=== PATIENT | female | born 1960 | race Caucasian/White ===

== ENCOUNTER 2020-05-15 20:10 | Outpatient (REF) | payer MEDICAID, SELFPAY ==
[2020-05-15 19:37] LABS: HCT 42.5 % (36.0-46.0); HGB 14.1 g/dL (12.0-15.5); Mean Corp. HGB Concentration 33.2 g/dL (32.0-36.0); Mean Corpuscular Hemoglobin 30.2 pg (27.0-33.0); Mean Platelet Volume 11.3 fL (8.0-11.0); Platelet Count 308 x1000/uL (130-400); RBC 4.67 m/cumm (4.00-5.20); White Blood Cell Count 4.85 k/cumm (4.4-10.8)
[2020-05-15 20:05] LABS: ALT 19 U/L (14-59); AST 19 U/L (15-37); Albumin 4.1 g/dL (3.4-5.0); Alkaline Phosphatase 62 U/L (46-116); Anion Gap 9.3 mmol/L (3-11); BUN 9 mg/dL (7-18); Bilirubin, Total 0.6 mg/dL (0.2-1.0); CO2 27.7 mmol/L (21.0-32.0); CREATININE 0.81 mg/dL (0.55-1.02); Calcium 9.5 mg/dL (8.5-10.1); Calculated LDL 131 mg/dL (<100); Chloride 99 mmol/L (98-107); Cholesterol 210 mg/dL (<200); Glucose 88 mg/dL (74-106); HDL Cholesterol 70 mg/dL (40-60); Sodium 136 mmol/L (136-145); Total Protein 7.2 g/dL (6.4-8.2); Triglyceride 48 mg/dL (<150)
== END 2020-05-15 20:30 ==
LOC: NCHCN 20:10
PROVIDERS: PCP Nurse Practitioner Family; Visit Provider Nurse Practitioner Family
DX: Z13.220 Encounter for screening for lipoid disorders (principal); Z13.228 Encounter for screening for other metabolic disorders; Z13.0 Encounter for screening for diseases of the blood and blood-forming organs and certain disorders involving the immune mechanism
CPT/HCPCS: 80053; 80061; 85027

== ENCOUNTER 2020-05-16 01:29 | Outpatient (CLI) | payer MEDICAID, SELFPAY ==
--- NOTE | 2020-05-16 | DI.MAMMO_ITS ---
EXAM: MAMMO SCREENING CLINICAL HISTORY: SCREENING, Z12.39 TECHNIQUE: Bilateral full field digital CC and MLO mammographic images were obtained with 3D tomosyn thesis and utilizing computer aided detection (CAD). COMPARISON: Available for comparison. FINDINGS: Masses/Architectural Distortion: There is an asymmetric density in the posterior superior left breast seen on the MLO view. Microcalcifications: No suspicious pleomorphic-type are seen. Skin Thickening/Nipple Retraction: None. IMPRESSION: 1. Asymmetric density in the posterior superior left breast seen on the MLO view. 2. This area should be further evaluated with spot compression views and ultrasound. BI-RADS Category 0 - Assessment Incomplete: Need additional imaging evaluation Breast Density - Category B - Scattered areas of fibroglandular density A negative radiographic report should not delay biopsy if a dominant or clinically suspicious mass is present. Up to ten percent of cancers are not identified on mammography. A negative report may reinforce clinical impression. Adenosis and dense breasts may obscure an underlying neoplasm. False positive reports average 6 to 10%. Patient will receive a letter notifying them of these results.
== END 2020-05-16 01:49 ==
PROVIDERS: PCP Nurse Practitioner Family; Visit Provider Nurse Practitioner Family
DX: Z12.31 Encounter for screening mammogram for malignant neoplasm of breast (principal); R92.8 Other abnormal and inconclusive findings on diagnostic imaging of breast
CPT/HCPCS: 77063; 77067

== ENCOUNTER 2020-05-25 00:23 | Outpatient (CLI) | payer MEDICAID, SELFPAY ==
--- NOTE | 2020-05-25 | DI.MAMMO_ITS ---
EXAM: MG MAMMO SCREEN CALL BACK UNI CLINICAL HISTORY: F/U MAMMO, ASYMMETRIC DENSITY LT TECHNIQUE: Spot compression views including C- View and tomographic imaging were performed. COMPARISON: Exams from 2004 through 2017 from [facility]. Recent exam da gia 16 May 2020. FINDINGS: The breasts are composed of scattered fibroglandular densities, Breast Density category B. An MLO spot compression view with tomography was performed of the posterior right breast. No persistent abnormality is seen on the additional views performed. The findings are consistent wit h overlying fibroglandular tissue. There has been no significant change from prior exams. IMPRESSION: BI-RADS Category 1, Negative Mammogram. Yearly screening mammography is recommended. Breast Density Category B, scattered fibroglandular densities.
== END 2020-05-25 00:43 ==
PROVIDERS: PCP Nurse Practitioner Family; Visit Provider Nurse Practitioner Family
DX: Z12.31 Encounter for screening mammogram for malignant neoplasm of breast (principal); R92.8 Other abnormal and inconclusive findings on diagnostic imaging of breast; N60.82 Other benign mammary dysplasias of left breast
CPT/HCPCS: 77063; 77067

== ENCOUNTER 2022-10-29 11:11 | Outpatient (REF) | payer MEDICAID, SELFPAY ==
--- NOTE | 2022-10-29 09:30 | PAPFT_PTH ---
PATIENT: Talita Wu LOC: NCN #:[id number] AGE/SX: 62/F ROOM: RE10/29/[address]: Zandra Lopez : 1960 BED: DIS: 10/29/2022 SPEC #: [id number] RECD: 10/29/22 18:24 STATUS: JULIÁN REDuarte #: [id number] HORTENSIA: 10/29/22 09:[address]: Zandra Lopez [facility] Cytology RECD BY: Deena Sykes Tissues: 1 - CX/ENDOCX FOR PAP SMEARS Procedures: PAP THIN PREP/UVM Screening HPV DNA PROBE Comments: [id number]
== END 2022-10-29 11:12 | disposition home or self-care (01) ==
LOC: NCHCN 11:11
PROVIDERS: PCP Nurse Practitioner Family; Visit Provider Nurse Practitioner Family
DX: Z12.4 Encounter for screening for malignant neoplasm of cervix (principal); Z11.51 Encounter for screening for human papillomavirus (HPV)
CPT/HCPCS: 88142; 87624

== ENCOUNTER → 2022-10-31 02:08 | Outpatient (CLI) | payer MEDICAID, SELFPAY ==
--- NOTE | 2022-10-31 10:15 | DI.MAMMO_ITS ---
Exam(s) MAMMO SCREENING EXAM: MAMMO SCREENING CLINICAL HISTORY: SCREENING, Z12.39 TECHNIQUE: Bilateral full field digital CC and MLO mammographic images were obtained with 3D tomosyn thesis and utilizing computer aided detection (CAD). COMPARISON: Available for comparison. FINDINGS: Masses/Architectural Distortion: There is a new small asymmetric density in the posterior right breas t seen on the MLO and CC views. Microcalcifications: No suspicious pleomorphic-type are seen. Skin Thickening/Nipple Retraction: None. IMPRESSION: 1. New small asymmetry in the posterior right breast. 2. Spot compression views and a complete right breast ultrasound are requested for further evaluation . BI-RADS Category 0 - Assessment Incomplete: Need additional imaging evaluation Breast Density - Category B - Scattered areas of fibroglandular density Breast density category C or D implies that the patient has dense breast tissue. Dense breast tissue is very common and is not abnormal but dense breast tissue can make it harder to find cancer on a ma mmogram. Also, dense breast tissue may increase their breast cancer risk. This information about the result of the mammogram report was provided to the patient to raise their awareness. Use this report when you speak with the patient about their risks for breast cancer, which includes their family hist ory. At that time, you may recommend for more screening tests (Ultrasound or MRI) as they might be us eful based on their risk. A negative radiographic report should not delay biopsy if a dominant or clinically suspicious mass is present. Up to ten percent of cancers are not identified on mammography. A negative report may reinforce clinical impression. Adenosis and dense breasts may obscure an underlying neoplasm. False positive reports average 6 to 10%. Patient will receive a letter notifying them of these results.
== END ==
PROVIDERS: PCP Nurse Practitioner Family; Visit Provider Nurse Practitioner Family
DX: Z12.31 Encounter for screening mammogram for malignant neoplasm of breast (principal); R92.8 Other abnormal and inconclusive findings on diagnostic imaging of breast
CPT/HCPCS: 77063; 77067

== ENCOUNTER 2022-11-14 01:42 | Outpatient (CLI) | payer MEDICAID, SELFPAY ==
--- NOTE | 2022-11-14 | DI.US_ITS ---
Exam(s) MG MAMMO SCREEN CALL BACK UNI US BREAST RT COMPLETE EXAM: MG MAMMO SCREEN CALL BACK UNI-RIGHT AND COMPLETE RIGHT BREAST ULTRASOUND CLINICAL HISTORY: F/U MAMMO, NEW SMALL ASYMMETRY POST RT BREAST. TECHNIQUE: Unilateral RIGHT BREAST spot mammographic images obtained with 3D tomosynthesisand utiliz ing computer aided detection (CAD). . Complete RIGHT breast Ultrasound was also performed, including all 4 quadrants, the retroareolar shannon on, and the ipsilateral axilla. COMPARISON: Prior mammograms were reviewed. This additional imaging was performed due to findings described on the recent screening mammogram of 10/31/2022. FINDINGS: DIAGNOSTIC MAMMOGRAM: Additional mammographic views performed todayrender this area somewhat less concerning. We proceeded with ultrasound. COMPLETE RIGHT BREAST ULTRASOUND: Ultrasound performed today reveals no significant focal findings in all 4 quadrants. No findings in the immediate retroareolar region. Scanning of the ipsilateral axilla reveals no significant adenopathy. IMPRESSION: 1. No obvious radiographic evidence of malignancy in the right breast. 2. Negative complete right breast ultrasound. Appropriate follow-up as discussed by myself with the patient today is repeat right breast mammogram in 3 months time. The patient was informed of these findings and recommendations prior to leaving the department today. BI-RADS Category 3 - 3 month - Probably Benign Finding: Recommend follow-up mammography in 3 months Breast Density - Category B - Scattered areas of fibroglandular density Breast density Category C or D implies that the patient has dense breast tissue. Dense breast tissue can make it harder to find cancer on a mammogram. Dense breast tissue is also associated with an incr eased risk of breast cancer. This information about the result of the mammogram report was provided to the patient to raise their awareness. Use this report when you speak with the patient about their risks for breast cancer, which includes their family history. At that time, you may recommend additional screening tests (Ultrasoun d or MRI) as these tests may add significant information. A negative radiographic report should not delay biopsy if a dominant or clinically suspicious mass is present. Up to ten percent of cancers are not identified on mammography. A negative report may reinforce clinical impression. Adenosis and dense breasts may obscure an underlying neoplasm. False positive reports average 6 to 10%. Patient will receive a letter notifying them of these results.
== END 2022-11-14 02:02 ==
LOC: DI 01:42
PROVIDERS: PCP Nurse Practitioner Family; Visit Provider Nurse Practitioner Family
DX: Z12.31 Encounter for screening mammogram for malignant neoplasm of breast (principal); R92.8 Other abnormal and inconclusive findings on diagnostic imaging of breast
CPT/HCPCS: 76642; 77063; 77067

== ENCOUNTER 2023-02-17 02:05 | Outpatient (CLI) | payer MEDICAID, SELFPAY ==
--- NOTE | 2023-02-17 | DI.MAMMO_ITS ---
Exam(s) MG MAMMO DIAGNOSTIC UNI EXAM: MAMMO DIAGNOSTIC UNI-RIGHT CLINICAL HISTORY: DIAGNOSTIC,F/U ABNL RT MAMMO, 3 MO F/U, R92.8. TECHNIQUE: BOTH CC AND MLO VIEWS OF THE RIGHT BREAST WERE PERFORMED. WE ALSO PERFORMED RIGHT BREAST unilateral spot mammographic images. Images were obtained with 3D tomosynthesis technique and [employer] computer aided detection (CAD). COMPARISON: Prior mammograms were reviewed, the most recent being October 2022. Ultrasound of [facility] 2021 was also reviewed.. FINDINGS: There has been no significant change in the appearance and distribution of the fibroglandular tissue of the right breast. The previously described asymmetric density posteriorly in the right breast see n on the screening mammogram of the 10/31/2022 is no longer seen, further evidence that it was benign , possibly a transient benign intramammary lymph node No new spiculated masses nor malignant-appearing microcalcification groups in the right breast. No n ew architectural distortion or skin thickening-traction in the right breast. IMPRESSION: No radiographic evidence of malignancy in the right breast Appropriate follow-up is to keep this patient on her yearly mammogram schedule, with earlier imaging if a self detected breast change is noted.. The patient was informed of the findings and follow-up recommendations by myself prior to leaving the department today. BI-RADS Category 2 - Benign Findings Breast Density - Category B - Scattered areas of fibroglandular density Breast density Category C or D implies that the patient has dense breast tissue. Dense breast tissue can make it harder to find cancer on a mammogram. Dense breast tissue is also associated with an incr eased risk of breast cancer. This information about the result of the mammogram report was provided to the patient to raise their awareness. Use this report when you speak with the patient about their risks for breast cancer, which includes their family history. At that time, you may recommend additional screening tests (Ultrasoun d or MRI) as these tests may add significant information. A negative radiographic report should not delay biopsy if a dominant or clinically suspicious mass is present. Up to ten percent of cancers are not identified on mammography. A negative report may reinforce clinical impression. Adenosis and dense breasts may obscure an underlying neoplasm. False positive reports average 6 to 10%. Patient will receive a letter notifying them of these results.
== END 2023-02-17 02:25 ==
LOC: DI 02:05
PROVIDERS: PCP Nurse Practitioner Family; Visit Provider Nurse Practitioner Family
DX: R92.8 Other abnormal and inconclusive findings on diagnostic imaging of breast (principal); N64.59 Other signs and symptoms in breast
CPT/HCPCS: 77061; 77065; G0279